=== PATIENT | female | born 1955 | race African-American/Black ===

== ENCOUNTER 2018-08-20 14:13 | Inpatient (IN) | payer OTHER ==
[2018-08-20 15:09] LABS: Protime INR 1.09
[2018-08-20 15:10] LABS: Absolute Lymphocytes (CBC) 1.7 K/uL (0.7-4.9); Absolute Monocytes 0.4 K/uL (0.1-1.3); Absolute Neutrophil 4.2 K/uL (1.8-8.0); Basophils % 0.7 % (0-1.3); Eosinophils % 2.2 % (0-4.4); Lymphocytes % 26.7 % (15.3-44.8); MCH 28.1 pg (27.0-35.0); MCV 84.1 fL (80-100); MPV 8.5 fL (7.6-11.3); Monocytes % 6.5 % (3.3-12.3); RBC Red Blood Cell Count 4.04 M/uL (3.86-4.86)
[2018-08-20 15:22] LABS: ALT/SGPT 18 U/L (12-78); AST/SGOT 15 U/L (15-37); Albumin 3.2 g/dL (3.4-5.0); Alkaline Phosphatase 63 U/L (45-117); BUN Blood Urea Nitrogen 15 mg/dL (7-18); Bicarbonate 29 mmol/L (21-32); Bilirubin Direct 0.1 mg/dL (0-0.2); Bilirubin Total 0.4 mg/dL (0.2-1.0); Glucose Level 83 mg/dL (74-106); Magnesium 1.8 mg/dL (1.8-2.4); NT PRO-BNP 880 pg/mL (<125); Potassium 4.1 mmol/L (3.5-5.1); Protein, Total 7.1 g/dL (6.4-8.2); Sodium Level 144 mmol/L (136-145); Troponin (Emerg Dept Use Only) < 0.02 ng/mL (0.0-0.045)
[2018-08-20 15:36] LABS: Anisocytosis 2+; Blood Morphology Comment NOTED (NOT SEEN); Hypochromasia 1+; Macrocytosis 1+; Platelet Estimate ADEQ; Polychromasia SLIGHT; Target Cells FEW; Urine White Blood Cell Casts OK
--- NOTE | 2018-08-20 16:06 | ER ---
Nurse's Notes [facility] Name: aDhiana Villafana Age: 63 yrs Sex: Female : 1955 Arrival Date: 08/20/2018 Time: 14:14 Bed 8 Private MD: Diagnosis: Altered mental status, unspecified;Weakness;Hypoxemia;Cystitis;Unspecified combined systolic (congestive) and diastolic (congestive) heart failure Presentation: 08/20 14:14 Presenting complaint: EMS states: Reports family called 911 for patient having AMS aj since this AM at 1000. Patient was responsive to pain on scene but slowly became more alert during transfer. Patient is bed bound at home. Awake but remains not verbally responsive at this time. Pupils are pinpoint. Transition of care: patient was not received from another setting of care. Onset of symptoms was August 20, 2018 at 10:00. Risk Assessment: Do you want to hurt yourself or someone else? Patient reports no desire to harm self or others. Initial Sepsis Screen: Does the patient meet any 2 criteria? No. Patient's initial sepsis screen is negative. Does the patient have a suspected source of infection? No. Patient's initial sepsis screen is negative. 14:14 Method Of Arrival: EMS: [facility] 14:14 Acuity: EFE 3 aj 14:28 Care prior to arrival: Glucose check: 84. aj Triage Assessment: 14:24 General: Appears in no apparent distress. well nourished, Behavior is quiet, aj unresponsive. Pain: Denies pain. Neuro: Level of Consciousness is awake, unresponsive, Oriented to none. Respiratory: Airway is patent Respiratory effort is even, unlabored, Respiratory pattern is regular, symmetrical. Derm: Skin is intact, is healthy with good turgor, Skin is pink, warm \T\ dry. normal. Derm: Decubitus located on right sacrum. Musculoskeletal: Contractures to right arm. 14:24 Derm: Decubitus located on heel(s). aj Historical: - Allergies: 14:24 Fentanyl; aj 14:24 Latex, Natural Rubber; aj - Home Meds: 14:24 Coreg 3.125 mg Oral tab 1 tab 2 times per day [Active]; aspirin 81 mg Oral TbEC 1 tab aj once daily [Active]; Cozaar 50 mg Oral tab 1 tab once daily [Active]; Cymbalta 60 mg oral cpDR 1 cap once daily [Active]; docusate sodium 100 mg Oral cap 1 cap once daily [Active]; gabapentin 300 mg oral cap 1 cap daily [Active]; ferrous sulfate 325 mg (65 mg iron) Oral tab [Active]; Keppra 500 mg Oral tab 1 tab 2 times per day [Active]; Norvasc 10 mg Oral tab 1 tab once daily [Active]; [place] 5-325 mg Oral tab as needed [Active]; Plavix 75 mg Oral tab 1 tab once daily [Active]; Remeron 15 mg Oral tab 1 tab once daily [Active]; trazodone 150 mg Oral tab as needed [Active]; Zyloprim 100 mg Oral tab 2 tabs 2 times per day [Active]; - PMHx: 14:24 Aphasia; cachexia; CHF; chronic kidney disease, stage 3; CVA; Depression; Diabetes - aj IDDM; GERD; Gout; Hypertension; Right sided weakness (Post CVA); - PSHx: 14:24 Gtube placement; aj - Immunization history:: Adult Immunizations up to date. - Social history:: Smoking status: Patient/guardian denies using tobacco. - Ebola Screening: : Patient negative for fever greater than or equal to 101.5 degrees Fahrenheit, and additional compatible Ebola Virus Disease symptoms Patient denies exposure to infectious person Patient denies travel to an Ebola-affected area in the 21 days before illness onset No symptoms or risks identified at this time. Screenin:26 Abuse screen: Denies threats or abuse. Denies injuries from another. Nutritional aj screening: No deficits noted. Tuberculosis screening: No symptoms or risk factors identified. Fall Risk None identified. Assessment: 17:26 Reassessment: Patient appears in no apparent distress at this time. No changes from aj previously documented assessment. Patient and/or family updated on plan of care and expected duration. Pain level reassessed. Patient denies pain at this time. 19:15 General: Appears in no apparent distress. not talking. Behavior is calm. Pain: Unable rr5 to use pain scale. aphasic. Neuro: Level of Consciousness is respond to voice. Cardiovascular: Capillary refill < 3 seconds Patient's skin is warm and dry. Respiratory: Airway is patent Respiratory effort is even, unlabored, Respiratory pattern is regular, symmetrical. GI: Abdomen is round. : No signs and/or symptoms were reported regarding the genitourinary system. EENT: No signs and/or symptoms were reported regarding the EENT system. Derm: No signs and/or symptoms reported regarding the dermatologic system. Skin is intact, Skin is dry, Skin is black. Musculoskeletal: Capillary refill < 3 seconds. Vital Signs: 14:27 BP 163 / 91; Pulse 72; Resp 22; Pulse Ox 91% on R/A; aj 14:27 Pulse Ox 100% on 2 lpm NC; aj 17:26 BP 158 / 81; Pulse 71; Resp 20; Pulse Ox 100% on R/A; aj 19:15 BP 165 / 95; Pulse 73; Resp 17; Temp 97.7(A); Pulse Ox 100% on R/A; rr5 20:30 BP 161 / 75; Pulse 75; Resp 17; Pulse Ox 99% on R/A; rr5 [place] Coma Score: 19:15 Eye Response: to voice(3). Verbal Response: confused(4). Motor Response: obeys rr5 commands(6). Total: 13. 20:30 Eye Response: spontaneous(4). Verbal Response: confused(4). Motor Response: obeys rr5 commands(6). Total: 14. ED Course: 14:14 Patient arrived in ED. aj 14:16 Triage completed. aj 14:27 Arm band placed on left wrist. Patient placed in an exam room, on a stretcher, on aj oxygen, on bus driver/monitor, on pulse oximetry. 14:46 Andi Garrison MD is Attending Physician. [facility] 14:47 Initial lab(s) drawn, by mn, sent to lab. Inserted saline lock: 22 gauge in right jb1 wrist, using aseptic technique. Blood collected. 14:56 EKG done, by ED staff, reviewed by Andi Garrison MD. jb1 15:04 XRAY Chest (1 view) In Process Unspecified. EDMS 15:57 Nae Carr MD is Hospitalizing Provider. candy 16:[address] via stretcher. nj 16:22 CT completed. Patient tolerated procedure well. Patient moved back from CT. nj 16:23 CT Head Brain wo Cont In Process Unspecified. EDMS 16:26 Samantha Gonzalez, RN is Primary Nurse. aj 17:26 Patient has correct armband on for positive identification. court recording monitor on. Pulse aj ox on. NIBP on. 17:26 Domingo cath inserted, using sterile technique, 16 Fr., by mn, balloon inflated, to aj gravity drainage, urine specimen collected. other Latex free domingo and latex free gloves used. 18:50 Urine Culture Sent. aj 18:50 Urine Dipstick--Ancillary (enter results) Sent. aj 20:30 No provider procedures requiring assistance completed. Patient admitted, IV remains in bb place. Administered Medications: Discontinued: NS 0.9% 500 ml IV at bolus once Discontinued: NS 0.9% 1000 ml IV at 125 ml/hr continuous 15:55 CANCELLED (Duplicate Order): Rocephin - (cefTRIAXone) 1 grams IVPB once over 30 mins; candy (mix in 50 mL NS) 16:45 Drug: NS 0.9% 500 ml Route: IV; Rate: bolus; Site: right forearm; aj 16:45 Drug: Zosyn 3.375 grams Route: IVPB; Infused Over: 60 mins; Site: right forearm; aj 18:50 Follow up: Response: No adverse reaction; IV Status: Completed infusion; IV Intake: aj 100ml 17:40 Drug: NS 0.9% 1000 ml Route: IV; Rate: 125 ml/hr; Site: right forearm; aj Intake: 18:50 IV: 100ml; Total: 100ml. aj Outcome: 15:58 Decision to Hospitalize by Provider. candy 20:30 Admitted to Tele accompanied by [facility], via stretcher, with chart, Report called to cassi Grullon RN 20:30 Condition: stable 20:30 Instructed on the need for admit. 21:37 Patient left the ED. rr5 Signatures: Dispatcher [employer] Victoriano Castellanos Amanda, RN RN Andi Zhou MD MD cha Ballard, Brenda RN RN Enmanuel Royal Raymond, RN RN rr5 Corrections: (The following items were deleted from the chart) 14:28 14:14 Care prior to arrival: None. aj aj
--- NOTE | 2018-08-20 16:06 | EDPHYS ---
Physician Documentation [facility] Name: Dahiana Villafana Age: 63 yrs Sex: Female : 1955 Arrival Date: 08/20/2018 Time: 14:14 Bed 8 Private MD: ED Physician Andi Garrison HPI: 08/20 15:44 This 63 yrs old Black Female presents to ER via EMS with complaints of Altered Mental candy Status. 15:44 The patient presents with confusion, decreased mental status. Onset: The candy symptoms/episode began/occurred 2 day(s) ago. Possible causes: CVA or TIA, sepsis. Associated signs and symptoms: Pertinent positives: confusion. Current symptoms: In the emergency department the patient's symptoms are unchanged from the initial presentation. Patient's baseline: Neuro: alert but confused. The patient has experienced similar episodes in the past, multiple times. Historical: - Allergies: 14:24 Fentanyl; aj 14:24 Latex, Natural Rubber; aj - Home Meds: 14:24 Coreg 3.125 mg Oral tab 1 tab 2 times per day [Active]; aspirin 81 mg Oral TbEC 1 tab aj once daily [Active]; Cozaar 50 mg Oral tab 1 tab once daily [Active]; Cymbalta 60 mg oral cpDR 1 cap once daily [Active]; docusate sodium 100 mg Oral cap 1 cap once daily [Active]; gabapentin 300 mg oral cap 1 cap daily [Active]; ferrous sulfate 325 mg (65 mg iron) Oral tab [Active]; Keppra 500 mg Oral tab 1 tab 2 times per day [Active]; Norvasc 10 mg Oral tab 1 tab once daily [Active]; [place] 5-325 mg Oral tab as needed [Active]; Plavix 75 mg Oral tab 1 tab once daily [Active]; Remeron 15 mg Oral tab 1 tab once daily [Active]; trazodone 150 mg Oral tab as needed [Active]; Zyloprim 100 mg Oral tab 2 tabs 2 times per day [Active]; - PMHx: 14:24 Aphasia; cachexia; CHF; chronic kidney disease, stage 3; CVA; Depression; Diabetes - aj IDDM; GERD; Gout; Hypertension; Right sided weakness (Post CVA); - PSHx: 14:24 Gtube placement; aj - Immunization history:: Adult Immunizations up to date. - Social history:: Smoking status: Patient/guardian denies using tobacco. - Ebola Screening: : Patient negative for fever greater than or equal to 101.5 degrees Fahrenheit, and additional compatible Ebola Virus Disease symptoms Patient denies exposure to infectious person Patient denies travel to an Ebola-affected area in the 21 days before illness onset No symptoms or risks identified at this time. ROS: 15:47 Constitutional: Negative for fever, chills, and weight loss, Eyes: Negative for injury, candy pain, redness, and discharge, ENT: Negative for injury, pain, and discharge, Neck: Negative for injury, pain, and swelling, Cardiovascular: Negative for chest pain, palpitations, and edema, Abdomen/GI: Negative for abdominal pain, nausea, vomiting, diarrhea, and constipation, Back: Negative for injury and pain, : Negative for injury, bleeding, discharge, and swelling, MS/Extremity: Negative for injury and deformity, Skin: Negative for injury, rash, and discoloration, Psych: Negative for depression, anxiety, suicide ideation, homicidal ideation, and hallucinations, Allergy/Immunology: Negative for hives, rash, and allergies, Endocrine: Negative for neck swelling, polydipsia, polyuria, polyphagia, and marked weight changes, Hematologic/Lymphatic: Negative for swollen nodes, abnormal bleeding, and unusual bruising. 15:47 Respiratory: Positive for cough. 15:47 Neuro: Positive for altered mental status, weakness. Exam: 15:47 Constitutional: This is a well developed, well nourished patient who is awake, alert, candy and in no acute distress. Head/Face: Normocephalic, atraumatic. Eyes: Pupils equal round and reactive to light, extra-ocular motions intact. Lids and lashes normal. Conjunctiva and sclera are non-icteric and not injected. Cornea within normal limits. Periorbital areas with no swelling, redness, or edema. ENT: Nares patent. No nasal discharge, no septal abnormalities noted. Tympanic membranes are normal and external auditory canals are clear. Oropharynx with no redness, swelling, or masses, exudates, or evidence of obstruction, uvula midline. Mucous membranes moist. Neck: Trachea midline, no thyromegaly or masses palpated, and no cervical lymphadenopathy. Supple, full range of motion without nuchal rigidity, or vertebral point tenderness. No Meningismus. Chest/axilla: Normal chest wall appearance and motion. Nontender with no deformity. No lesions are appreciated. Cardiovascular: Regular rate and rhythm with a normal S1 and S2. No gallops, murmurs, or rubs. Normal PMI, no JVD. No pulse deficits. Abdomen/GI: Soft, non-tender, with normal bowel sounds. No distension or tympany. No guarding or rebound. No evidence of tenderness throughout. Back: No spinal tenderness. No costovertebral tenderness. Full range of motion. Female : Normal external genitalia. Skin: Warm, dry with normal turgor. Normal color with no rashes, no lesions, and no evidence of cellulitis. MS/ Extremity: Pulses equal, no cyanosis. Neurovascular intact. Full, normal range of motion. Neuro: Awake and alert, GCS 15, oriented to person, place, time, and situation. Cranial nerves II-XII grossly intact. Motor strength 5/5 in all extremities. Sensory grossly intact. Cerebellar exam normal. Normal gait. Psych: Awake, alert, with orientation to person, place and time. Behavior, mood, and affect are within normal limits. 15:47 Respiratory: the patient does not display signs of respiratory distress, Respirations: normal, Breath sounds: are clear throughout, rhonchi, that are mild, are scattered. 15:47 Skin: cellulitis, is not appreciated, induration, is not appreciated, lesion(s), noted, and can be described as erythematous, pustular, tender, located on the heel of right foot. Vital Signs: 14:27 BP 163 / 91; Pulse 72; Resp 22; Pulse Ox 91% on R/A; aj 14:27 Pulse Ox 100% on 2 lpm NC; aj 17:26 BP 158 / 81; Pulse 71; Resp 20; Pulse Ox 100% on R/A; aj 19:15 BP 165 / 95; Pulse 73; Resp 17; Temp 97.7(A); Pulse Ox 100% on R/A; rr5 20:30 BP 161 / 75; Pulse 75; Resp 17; Pulse Ox 99% on R/A; rr5 [facility] Coma Score: 19:15 Eye Response: to voice(3). Verbal Response: confused(4). Motor Response: obeys rr5 commands(6). Total: 13. 20:30 Eye Response: spontaneous(4). Verbal Response: confused(4). Motor Response: obeys rr5 commands(6). Total: 14. MDM: 14:46 Patient medically screened. [facility] 15:49 Data reviewed: vital signs, nurses notes, lab test result(s), EKG, radiologic studies, [facility] CT scan, plain films. 08/20 14:46 Order name: Basic Metabolic Panel; Complete Time: 15:49 [facility] 08/20 14:46 Order name: CBC with Diff; Complete Time: 15:49 [facility] 08/20 14:46 Order name: LFT's; Complete Time: 15:49 [facility] 08/20 14:46 Order name: Magnesium; Complete Time: 15:49 [facility] 08/20 14:46 Order name: NT PRO-BNP; Complete Time: 15:49 [facility] 08/20 14:46 Order name: PT-INR; Complete Time: 15:49 [facility] 08/20 14:46 Order name: Troponin (emerg Dept Use Only); Complete Time: 15:49 [facility] 08/20 14:46 Order name: Blood Culture Adult (2) [facility] 08/20 14:46 Order name: Lactate; Complete Time: 15:49 [facility] 08/20 14:46 Order name: Procalcitonin; Complete Time: 16:56 [facility] 08/20 15:16 Order name: CBC Smear Scan; Complete Time: 15:49 [facility] 08/20 15:43 Order name: Urine Culture [facility] 08/20 17:25 Order name: Urine Dipstick--Ancillary (enter results) 08/20 17:32 Order name: Urine Dipstick-Ancillary; Complete Time: 18:27 [facility] 08/20 14:46 Order name: XRAY Chest (1 view); Complete Time: 18:27 [facility] 08/20 14:46 Order name: EKG; Complete Time: 14:49 [facility] 08/20 14:46 Order name: Cardiac monitoring; Complete Time: 14:49 [facility] 08/20 14:46 Order name: EKG - Nurse/Tech; Complete Time: 14:49 [facility] 08/20 14:46 Order name: IV Saline Lock; Complete Time: 14:49 [facility] 08/20 14:46 Order name: Labs collected and sent; Complete Time: 14:49 [facility] 08/20 14:46 Order name: O2 Per Protocol; Complete Time: 14:49 [facility] 08/20 14:46 Order name: O2 Sat Monitoring; Complete Time: 14:49 [facility] 08/20 15:43 Order name: Urine Dipstick-Ancillary (obtain specimen); Complete Time: 17:43 [facility] 08/20 15:43 Order name: Burch; Complete Time: 17:43 [facility] 08/20 15:55 Order name: CT Head Brain wo Cont; Complete Time: 16:56 [facility] 08/20 18:23 Order name: Diet Ada 2000 Garrick; Complete Time: 18:28 aj Administered Medications: Discontinued: NS 0.9% 500 ml IV at bolus once Discontinued: NS 0.9% 1000 ml IV at 125 ml/hr continuous 15:55 CANCELLED (Duplicate Order): Rocephin - (cefTRIAXone) 1 grams IVPB once over 30 mins; candy (mix in 50 mL NS) 16:45 Drug: NS 0.9% 500 ml Route: IV; Rate: bolus; Site: right forearm; aj 16:45 Drug: Zosyn 3.375 grams Route: IVPB; Infused Over: 60 mins; Site: right forearm; aj 18:50 Follow up: Response: No adverse reaction; IV Status: Completed infusion; IV Intake: aj 100ml 17:40 Drug: NS 0.9% 1000 ml Route: IV; Rate: 125 ml/hr; Site: right forearm; Disposition: 08/20/18 15:58 Hospitalization ordered by Nae Carr for Observation. Preliminary diagnosis are Altered mental status, unspecified, Weakness, Hypoxemia, Cystitis, Unspecified combined systolic (congestive) and diastolic (congestive) heart failure. - Bed requested for Telemetry/MedSurg (observation). - Status is Observation. rr5 - Condition is Fair. - Problem is new. - Symptoms have improved. UTI on Admission? Yes Signatures: Dispatcher [employer] EDMS Victoriano Garrett [email or web address] Court Bowen RN RN dw Myers, Amanda, RN RN aj Anderson, Corey, MD MD cha Roque, Raymond, RN RN rr5 Corrections: (The following items were deleted from the chart) 15:55 15:55 Rocephin - (cefTRIAXone) 1 grams IVPB once over 30 mins; (mix in 50 mL NS) candy ordered. candy 16:05 15:58 Hospitalization Ordered by Nae Carr MD for Observation. Preliminary diagnosis candy is Altered mental status, unspecified; Weakness. Bed requested for Telemetry/MedSurg (Inpatient). Status is Observation. Condition is Fair. Problem is new. Symptoms have improved. UTI on Admission? Yes. [facility] 16:05 16:05 08/20/2018 15:58 Hospitalization Ordered by Nae Carr MD for Observation. candy Preliminary diagnosis is Altered mental status, unspecified; Weakness; Hypoxemia. Bed requested for Telemetry/MedSurg (Inpatient). Status is Observation. Condition is Fair. Problem is new. Symptoms have improved. UTI on Admission? Yes. [facility] 16:57 16:05 08/20/2018 15:58 Hospitalization Ordered by Nae Carr MD for Inpatient candy Admission. Preliminary diagnosis is Altered mental status, unspecified; Weakness; Hypoxemia. Bed requested for Telemetry/MedSurg (Inpatient). Status is Inpatient Admission. Condition is Fair. Problem is new. Symptoms have improved. UTI on Admission? Yes. [facility] 18:31 16:57 08/20/2018 15:58 Hospitalization Ordered by Nae Carr MD for Observation. candy Preliminary diagnosis is Altered mental status, unspecified; Weakness; Hypoxemia. Bed requested for Telemetry/MedSurg (observation). Status is Observation. Condition is Fair. Problem is new. Symptoms have improved. UTI on Admission? Yes. [facility] 19:38 18:31 08/20/2018 15:58 Hospitalization Ordered by Nae Carr MD for Observation. Preliminary diagnosis is Altered mental status, unspecified; Weakness; Hypoxemia; Cystitis; Unspecified combined systolic (congestive) and diastolic (congestive) heart failure. Bed requested for Telemetry/MedSurg (observation). Status is Observation. Condition is Fair. Problem is new. Symptoms have improved. UTI on Admission? Yes. [facility] 21:37 19:38 08/20/2018 15:58 Hospitalization Ordered by Nae Carr MD for Observation. rr5 Preliminary diagnosis is Altered mental status, unspecified; Weakness; Hypoxemia; Cystitis; Unspecified combined systolic (congestive) and diastolic (congestive) heart failure. Bed requested for Telemetry/MedSurg (observation). Status is Observation. Condition is Fair. Problem is new. Symptoms have improved. UTI on Admission? Yes. dw
--- NOTE | 2018-08-20 16:27 | RAD REPORT ---
EXAM DESCRIPTION: CT - Head Brain Wo Cont - 08/20/2018 4:22 pm CLINICAL HISTORY: Transient alteration of awareness COMPARISON: February 2016. . TECHNIQUE: Axial 5 mm thick images of the head were obtained without IV contrast. All CT scans are performed using dose optimization technique as appropriate and may include automated exposure control or mA/KV adjustment according to patient size. FINDINGS: No intracranial hemorrhage, mass, edema or shift of mid-line structures. No acute infarcti on changes seen. No cortical edema or sulcal effacement. There is a large area of encephalomalacia in the left cerebral hemisphere from old CVA. A smaller area of old CVA is present in the right cerebra l hemisphere. Findings are not substantially different from 2016. Significant underlying atrophy and chronic ischemic change match the old study. Ventricles are in proportion to volume loss. Mastoid air cells and visualized portions of the paranasal sinuses are clear. No acute bony findings. IMPRESSION: No hemorrhage, edema or acute intracranial finding. Significant atrophy, chronic ischemic change and old infarction changes are not substantially differe nt from 2016.
[2018-08-20] MEDS ORDERED: NA CHLORIDE 0.9% 1,000 ML ONE (16:37)
[2018-08-20] MEDS ORDERED: PIPER/TAZO/NS 3.375gm 3.375 GM/100 ML BAG ONE (16:37)
[2018-08-20 17:32] LABS: Urine Blood 1+ (NEG); Urine Glucose NEGATIVE (NEG); Urine Protein NEGATIVE (NEG); Urine Specific Gravity 1.015 (1.005-1.030)
--- NOTE | 2018-08-20 18:00 | RAD REPORT ---
EXAM DESCRIPTION: RAD - Chest Single View - 08/20/2018 3:04 pm CLINICAL HISTORY: Cough and congestion, shortness of breath, stroke-like neurologic symptoms COMPARISON: February 2016, January 2016 TECHNIQUE: AP portable chest image was obtained 1456 hours . FINDINGS: Interstitial and minimal alveolar opacification present. Cardiomegaly is present increased from comparison. Vasculature is engorged. There is fullness of the left hilum that is unchanged from prior imaging. Trachea is midline. Mediastinum is distorted by rotation. No measurable pleural effus ion and no pneumothorax. No acute bony abnormality seen. No acute aortic findings suspected. IMPRESSION: Mild CHF/volume overload pattern is evident. Fullness or masslike density of the left hilum is present but may represent the effects of vascular e ngorgement rather than mass. Follow-up two-view chest exam is recommended when the patient can undergo that procedure.
[2018-08-20] MEDS ORDERED: LEVALBUTEROL 1.25 MG/3 ML NEB ONE (19:26)
[2018-08-20] MEDS: IPRATROPIUM BROM 0.5MG/2.5ML NEB SCH (19:30)
[2018-08-20] MEDS: LEVALBUTEROL 1.25 MG/3 ML NEB NEB SCH (19:30)
[2018-08-20] MEDS ORDERED: ACETAMINOPHEN 500 MG TAB PO PRN (21:15)
[2018-08-20] MEDS ORDERED: ONDANSETRON 4 MG/2 ML VIAL IV PRN (21:15)
[2018-08-20 22:59] VITALS: BMI 25.9
[2018-08-21] MEDS: LEVALBUTEROL 1.25 MG/3 ML NEB NEB SCH ×3 (01:19→14:00)
[2018-08-21] MEDS: IPRATROPIUM BROM 0.5MG/2.5ML NEB SCH ×3 (01:19→14:00)
[2018-08-21] MEDS ORDERED: ACETAMINOPHEN 325 MG TABLET PO PRN ×2 (01:41)
[2018-08-21] MEDS ORDERED: HYDROCODONE/APAP 5/325 MG TAB PO PRN (01:41)
[2018-08-21] MEDS ORDERED: HYDRALAZINE HCL 20 MG/ML VIAL IV ONE (01:58)
[2018-08-21] MEDS ORDERED: ONDANSETRON 4 MG (ODT) TAB PO PRN (02:21)
[2018-08-21 06:00] LABS: Bilirubin Total 0.3 mg/dL (0.2-1.0); Magnesium 1.7 mg/dL (1.8-2.4); Phosphorus 4.2 mg/dL (2.5-4.9); Potassium 4.5 mmol/L (3.5-5.1); Protein, Total 6.7 g/dL (6.4-8.2)
[2018-08-21] MEDS ORDERED: HYDRALAZINE HCL 20 MG/ML VIAL IV PRN (06:00)
[2018-08-21 06:16] LABS: Absolute Lymphocytes (CBC) 1.5 K/uL (0.7-4.9); Absolute Monocytes 0.7 K/uL (0.1-1.3); Absolute Neutrophil 5.9 K/uL (1.8-8.0); Basophils % 0.6 % (0-1.3); Eosinophils % 2.1 % (0-4.4); Lymphocytes % 17.5 % (15.3-44.8); MCH 28.6 pg (27.0-35.0); MCV 84.9 fL (80-100); MPV 8.6 fL (7.6-11.3); Monocytes % 8.8 % (3.3-12.3); RBC Red Blood Cell Count 4.24 M/uL (3.86-4.86)
[2018-08-21] MEDS ORDERED: MAGNESIUM SULFATE 1 gm IVPB 1 GM/100 ML BAG IV ONE (06:19)
--- NOTE | 2018-08-21 07:01 | EKG ---
Test Date: 2018-08-20 Test Time: 14:54:49 Loom Setter Fourdrinier: CHARMAINE MEASUREMENT RESULTS: Intervals: Rate: 68 WV: 162 QRSD: 92 QT: 436 QTc: 463 Sears: P: 43 WV: 162 QRS: 4 T: 49 INTERPRETIVE STATEMENTS: Normal sinus rhythm Nonspecific T wave abnormality Abnormal ECG Compared to ECG 03/18/2016 22:15:32 Sinus bradycardia no longer present T-wave abnormality still present Electronically Signed On 08-21-18 07:00:32 PHYSICAL THERAPY ASSISTANT by Jasvir Galvan
[2018-08-21] MEDS: METFORMIN HCL 500 MG TAB PO SCH ×2 (08:11→16:12)
[2018-08-21] MEDS: CARVEDILOL 3.125 MG TAB PO SCH ×2 (08:11→16:12)
[2018-08-21] MEDS: FERROUS SULFATE 325 MG TAB PO SCH (09:58)
[2018-08-21] MEDS: MULTIVIT W/ MINERAL TAB PO SCH (09:59)
[2018-08-21] MEDS: ASPIRIN 81 MG CHEWABLE TABLET PO SCH (09:59)
[2018-08-21] MEDS: AMLODIPINE 10 MG TAB PO SCH (09:59)
[2018-08-21] MEDS: ASCORBIC ACID 500 MG TABLET PO SCH ×2 (09:59→21:45)
[2018-08-21] MEDS: DOCUSATE NA 100 MG CAP PO SCH ×2 (09:59→21:46)
[2018-08-21] MEDS: ALLOPURINOL 100 MG TAB PO SCH (09:59)
[2018-08-21] MEDS: ZINC SULFATE 220 MG CAP PO SCH (09:59)
[2018-08-21] MEDS: LOSARTAN POTASSIUM 50 MG TABLET PO SCH (09:59)
[2018-08-21] MEDS: AMIODARONE HCL 200 MG TAB PO SCH (10:00)
[2018-08-21] MEDS: levETIRAcetam 500 MG TAB PO SCH ×2 (10:00→21:45)
[2018-08-21] MEDS: CLOPIDOGREL 75 MG TABLET PO SCH (10:01)
[2018-08-21] MEDS ORDERED: D50W 25 GM/50 ML SYRINGE IV PRN (10:41)
[2018-08-21] MEDS ORDERED: GLUCAGON 1 MG/VIAL IM PRN (10:41)
[2018-08-21] MEDS: INSULIN -REGULAR HUMAN 50 UNIT/0.5 ML ML SQ SCH ×3 (11:30→21:00)
--- NOTE | 2018-08-21 11:32 | P.HP ---
Certification for Inpatient Patient admitted to: Observation With expected LOS: <2 Midnights Patient will require the following post-hospital care: None Practitioner: I am a practitioner with admitting privileges, knowledge of patient current condition, hospital course, and medical plan of care. 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 However, she suffered a major stroke which left the left side of her body weak. She went through a lot of depression and she has the done able to recover completely. She still has left-sided weakness and contractures of the left upper extremity. She is living at [facility] and really does not do much. She has has a sacral ulcer and a right-sided heel ulcer. Patient came in with altered mentation and hypoxemia. She does go to episodes of depression were she does not communicate with any body. This is very unlike her personality from when she was a tag press operator. She is admitted to the hospital for observation. Allergies fentanyl Allergy (Verified 08/21/18 00:07) Unknown Latex, Natural Rubber Allergy (Uncoded 02/18/16 05:33) Unknown Home Medications: Acetaminophen [Tylenol -Tablet] 650 mg PO Q4HP PRN 08/21/18 Acetaminophen [Tylenol -Tablet] 650 mg PO Q6HP PRN 08/21/18 Allopurinol [Zyloprim] 200 mg PO DAILY 08/21/18 Amiodarone HCl [Cordarone*] 200 mg PO DAILY 08/21/18 Amlodipine [Norvasc*] 1 tab PO DAILY 08/21/18 Ascorbic Acid 500 mg PO BID 08/21/18 Aspirin 81 mg PO DAILY 08/21/18 Carvedilol [Coreg*] 3.125 mg PO BID 08/21/18 Clopidogrel Bisulfate [Plavix] 75 mg PO DAILY 08/21/18 Docusate Sodium 100 mg PO BID 08/21/18 Donepezil [Aricept] 10 mg PO BEDTIME 08/21/18 Duloxetine HCl [Cymbalta] 30 mg PO BEDTIME 08/21/18 Duloxetine HCl [Cymbalta] 60 mg PO BEDTIME 08/21/18 Ferrous Sulfate [Ferrous Sulfate*] 325 mg PO DAILY 08/21/18 Gabapentin 300 mg PO BEDTIME 08/21/18 Hydrocodone 5/APAP 325 [[place] 5/325*] 1 tab PO Q6HP PRN 08/21/18 Losartan Potassium [Cozaar*] 50 mg PO DAILY 08/21/18 Metformin HCl [Glucophage*] 500 mg PO Q12H 08/21/18 Mirtazapine [Remeron*] 1 tab PO BEDTIME 08/21/18 Multivitamin with Minerals [Multivitamins with Minerals] 1 tab PO DAILY Ondansetron HCl [Zofran] 4 mg PO Q8HP PRN 08/21/18 Terazosin HCl 1 cap PO BEDTIME 08/21/18 Trazodone HCl [Desyrel] 150 mg PO BEDTIME 08/21/18 Zinc Sulfate [Zinc Sulfate*] 1 cap PO DAILY 08/21/18 levETIRAcetam [Keppra*] 500 mg PO BID 08/21/18 - Past Medical/Surgical History Diabetic: Yes -: HTN -: IDDM -: Aphasia -: cachexia -: CHF -: Kidney Disease Stage 3 -: GERD -: Depression -: Stroke -: LEFT KNEE surgery -: CVA Psychosocial/ Personal History: 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 for many years - Family History Father Notes: unknwon Mother Notes: unknown - Social History Alcohol use: No CD- Drugs: No Caffeine use: No Review of Systems 10-point ROS is otherwise unremarkable Physical Examination - Vital Signs Temperature: 98.0 F Blood Pressure: 192/93 Pulse: 67 Respirations: 20 Pulse Ox (%): 96 - Physical Exam General: Alert, In no apparent distress, Oriented x2, Confused HEENT: Atraumatic, PERRLA, Mucous membr. moist/pink, EOMI, Sclerae nonicteric Neck: Supple, 2+ carotid pulse no bruit, No LAD, Without JVD or thyroid abnormality Respiratory: Clear to auscultation bilaterally, Normal air movement Cardiovascular: Regular rate/rhythm, Normal S1 S2, No murmurs Gastrointestinal: Normal bowel sounds, Soft and benign, Non-distended, No tenderness Musculoskeletal: No clubbing, No swelling, No tenderness Integumentary: No rashes Neurological: Sensation intact, Cranial nerves 3-12 intact, Abnormal gait, Abnormal speech, Abnormal strength, Abnormal tone, Abnormal affect Lymphatics: No axilla or inguinal lymphadenopathy - Studies Laboratory Data (last 24 hrs) 08/20/18 14:43: PT 12.9 H, INR 1.09 08/20/18 14:43: WBC 6.6, Hgb 11.4 L, Hct 34.0 L, Plt Count 296 08/20/18 14:43: Sodium 144, Potassium 4.1, BUN 15, Creatinine 1.00, Glucose 83, Magnesium 1.8, Total Bilirubin 0.4, AST 15, ALT 18, Alkaline Phosphatase 63 Microbiology Data (last 24 hrs): 08/20/18 14:30 Blood - Blood Anaerobic Blood Culture - Final 08/20/18 14:43 Blood - Blood Anaerobic Blood Culture - Final Assessment & Plan - Problems (Diagnosis) (1) Hypoxemia Current Visit: Yes Status: Acute (2) Cardiomegaly Current Visit: Yes Status: Acute (3) Acute exacerbation of CHF (congestive heart failure) Current Visit: Yes Status: Acute (4) Malignant hypertension Current Visit: Yes Status: Acute (5) Altered mental status Onset Date: 02/18/16 Current Visit: No Status: Acute (6) CVA (cerebral vascular accident) Onset Date: 12/24/15 Current Visit: No Status: Acute Qualifiers: (7) DM2 (diabetes mellitus, type 2) Onset Date: 12/24/15 Current Visit: No Status: Acute - Plan 1. Echocardiogram 2. Most likely diastolic dysfunction from her history of poorly controlled blood pressure 3. May need to start clonidine 4. Cardiology consultation 5. Gentle diuresing 6. Strict I's and O's 7. Repeat CXR 8. Wound care 9. Continue dressing changes per [facility] orders 10. Monitor renal function closely 11. Patient with questionable dysphagia will get speech therapy eval 12. GI and DVT prophylaxis Discharge Plan: Home Plan to discharge in: Greater than 2 days - Advance Directives Does patient have a Living Will: No Does patient have a Durable POA for Healthcare: No - Code Status/Comfort Care Code Status Assessed: Yes Code Status: Full Code Critical Care: No Time Spent Managing PTS Care (In Minutes): 50
[2018-08-21] MEDS: CEFTRIAXONE/SWI 1gm 1 GM/10 ML SYR IV SCH (13:50)
[2018-08-21] MEDS ORDERED: IPRATROPIUM BROM 0.5MG/2.5ML NEB PRN (14:02)
[2018-08-21] MEDS ORDERED: LEVALBUTEROL 1.25 MG/3 ML NEB NEB PRN (14:02)
[2018-08-21] MEDS: VANCOMYCIN 1.25 GM in NA CHLORIDE 0.9% 250 ML IVPB SCH (15:20)
[2018-08-21] MEDS ORDERED: DULOXETINE 30 MG CAP PO SCH (21:00)
[2018-08-21] MEDS: TERAZOSIN HCL 1 MG CAP PO SCH (21:00)
[2018-08-21] MEDS: GABAPENTIN 300 MG CAP PO SCH (21:45)
[2018-08-21] MEDS: TRAZODONE 150 MG TAB PO SCH (21:45)
[2018-08-21] MEDS: DULOXETINE 30 MG CAP PO SCH (21:45)
[2018-08-21] MEDS: DONEPEZIL HCL 5 MG TAB PO SCH (21:46)
[2018-08-21] MEDS: MIRTAZAPINE 15 MG TAB PO SCH (21:47)
--- NOTE | 2018-08-21 22:13 | P.PN ---
Subjective Date of Service: 08/22/18 Chief Complaint: Altered mental status/hypoxemia Physical Examination - Vital Signs Temperature: 97.0 F Blood Pressure: 128/74 Pulse: 80 Respirations: 16 Pulse Ox (%): 97 - Studies Microbiology Data (last 24 hrs): 08/20/18 14:30 Blood - Blood Anaerobic Blood Culture - Final 08/20/18 14:43 Blood - Blood Anaerobic Blood Culture - Final Assessment And Plan - Plan Hypoxemia Improved, continue oxygen as needed Cardiomegaly Acute exacerbation of CHF (congestive heart failure) Continue IV diuresis Cardiology consultation Echo pending, most likely diastolic dysfunction were history of poorly- controlled blood pressure Malignant hypertension Improved with losartan, amlodipine and Coreg. Will continue current medications at this time. Hydralazine p.r.n. ordered for SBP greater than 160 Altered mental status Unsure of baseline, the patient at this time just opens eyes and stares The attempt to respond. Which she can nod her head yes or no appropriately to questions, when she wants to. May consider imaging if no improvement. Will call intermediate to get report on patient's baseline. CVA (cerebral vascular accident) DM2 (diabetes mellitus, type 2) Accu-Cheks, sliding scale insulin Dysphasia. Speech therapy eval, recommendations appreciated. DVT prophylaxis: Lovenox GI prophylaxis: Protonix Diet: Mechanically soft food and regular liquids. Disposition:
[2018-08-22 05:49] LABS: Absolute Lymphocytes (CBC) 1.7 K/uL (0.7-4.9); Absolute Monocytes 0.5 K/uL (0.1-1.3); Absolute Neutrophil 2.8 K/uL (1.8-8.0); Basophils % 1.3 % (0-1.3); Eosinophils % 3.3 % (0-4.4); Hematocrit 30.2 % (36.0-45.0); Lymphocytes % 32.8 % (15.3-44.8); MCH 28.5 pg (27.0-35.0); MCV 84.2 fL (80-100); MPV 8.5 fL (7.6-11.3); Monocytes % 8.8 % (3.3-12.3); RBC Red Blood Cell Count 3.59 M/uL (3.86-4.86)
[2018-08-22 06:02] LABS: Albumin 2.6 g/dL (3.4-5.0); Bilirubin Total 0.3 mg/dL (0.2-1.0); Magnesium 1.9 mg/dL (1.8-2.4); Potassium 4.2 mmol/L (3.5-5.1)
[2018-08-22] MEDS: INSULIN -REGULAR HUMAN 50 UNIT/0.5 ML ML SQ SCH ×4 (07:30→21:00)
[2018-08-22] MEDS: CARVEDILOL 3.125 MG TAB PO SCH ×2 (08:35→18:13)
[2018-08-22] MEDS: METFORMIN HCL 500 MG TAB PO SCH ×2 (08:36→18:13)
[2018-08-22] MEDS: DOCUSATE NA 100 MG CAP PO SCH ×2 (09:43→20:28)
[2018-08-22] MEDS: AMIODARONE HCL 200 MG TAB PO SCH (09:43)
[2018-08-22] MEDS: FERROUS SULFATE 325 MG TAB PO SCH (09:43)
[2018-08-22] MEDS: CLOPIDOGREL 75 MG TABLET PO SCH (09:43)
[2018-08-22] MEDS: ASPIRIN 81 MG CHEWABLE TABLET PO SCH (09:43)
[2018-08-22] MEDS: ASCORBIC ACID 500 MG TABLET PO SCH ×2 (09:43→20:28)
[2018-08-22] MEDS: MULTIVIT W/ MINERAL TAB PO SCH (09:43)
[2018-08-22] MEDS: LOSARTAN POTASSIUM 50 MG TABLET PO SCH (09:44)
[2018-08-22] MEDS: ALLOPURINOL 100 MG TAB PO SCH (09:44)
[2018-08-22] MEDS: levETIRAcetam 500 MG TAB PO SCH ×2 (09:44→20:29)
[2018-08-22] MEDS: AMLODIPINE 10 MG TAB PO SCH (09:44)
[2018-08-22] MEDS: ZINC SULFATE 220 MG CAP PO SCH (09:44)
[2018-08-22] MEDS: CEFTRIAXONE/SWI 1gm 1 GM/10 ML SYR IV SCH (09:45)
[2018-08-22] MEDS: VANCOMYCIN 1.25 GM in NA CHLORIDE 0.9% 250 ML IVPB SCH (09:45)
--- NOTE | 2018-08-22 17:16 | P.PN ---
Subjective Date of Service: 08/22/18 Chief Complaint: Altered mental status/hypoxemia Subjective: No new changes Patient seen and examined at bedside. No family at bedside. Case discussed with nursing staff. Review of Systems As noted Physical Examination - Vital Signs Temperature: 97.0 F Blood Pressure: 128/74 Pulse: 80 Respirations: 16 Pulse Ox (%): 97 - Physical Exam General: In no apparent distress, Unresponsive, Other (Though does respond by nodding her head appropriately yes or no when she wants) HEENT: Atraumatic, PERRLA, EOMI Neck: Supple, JVD not distended Respiratory: Clear to auscultation bilaterally, Normal air movement Cardiovascular: Regular rate/rhythm, Normal S1 S2 Gastrointestinal: Normal bowel sounds, No tenderness Musculoskeletal: No tenderness Integumentary: No rashes Neurological: Normal speech, Normal tone, Normal affect Lymphatics: No axilla or inguinal lymphadenopathy - Studies Microbiology Data (last 24 hrs): 08/20/18 14:30 Blood - Blood Aerobic Blood Culture - Final 08/20/18 14:30 Blood - Blood Gram Stain - Final 08/20/18 14:30 Blood - Blood Anaerobic Blood Culture - Final 08/20/18 14:43 Blood - Blood Aerobic Blood Culture - Final 08/20/18 14:43 Blood - Blood Gram Stain - Final 08/20/18 14:43 Blood - Blood Anaerobic Blood Culture - Final Assessment And Plan - Plan Hypoxemia Improved, continue oxygen as needed Cardiomegaly Acute exacerbation of CHF (congestive heart failure) Continue IV diuresis Cardiology consultation Echo pending, most likely diastolic dysfunction were history of poorly- controlled blood pressure Malignant hypertension Improved with losartan, amlodipine and Coreg. Will continue current medications at this time. Hydralazine p.r.n. ordered for SBP greater than 160 Urinary tract infection with Klebsiella Continue IV Rocephin Blood cultures pending, negative growth till date. If continue to be negative, will discontinue vancomycin Altered mental status Unsure of baseline, the patient at this time just opens eyes and stares The attempt to respond. Which she can nod her head yes or no appropriately to questions, when she wants to. May consider imaging if no improvement. Will call [facility] to get report on patient's baseline. CVA (cerebral vascular accident) DM2 (diabetes mellitus, type 2) Accu-Cheks, sliding scale insulin Dysphasia. Speech therapy eval, recommendations appreciated. DVT prophylaxis: Lovenox GI prophylaxis: Protonix Diet: Mechanically soft food and regular liquids. Disposition: Pending symptomatic improvement, return getting back to baseline. Cardiac testing also pending. [facility]charge Plan: [facility] Plan to discharge in: 24 Hours
[2018-08-22] MEDS: DULOXETINE 30 MG CAP PO SCH (20:28)
[2018-08-22] MEDS: MIRTAZAPINE 15 MG TAB PO SCH (20:29)
[2018-08-22] MEDS: DONEPEZIL HCL 5 MG TAB PO SCH (20:29)
[2018-08-22] MEDS: TRAZODONE 150 MG TAB PO SCH (20:30)
[2018-08-22] MEDS: TERAZOSIN HCL 1 MG CAP PO SCH (20:30)
[2018-08-22] MEDS: GABAPENTIN 300 MG CAP PO SCH (20:30)
[2018-08-23] MEDS: VANCOMYCIN 1.25 GM in NA CHLORIDE 0.9% 250 ML IVPB SCH (03:34)
[2018-08-23 05:55] LABS: Absolute Lymphocytes (CBC) 1.6 K/uL (0.7-4.9); Absolute Monocytes 0.6 K/uL (0.1-1.3); Absolute Neutrophil 3.4 K/uL (1.8-8.0); Basophils % 0.7 % (0-1.3); Eosinophils % 3.9 % (0-4.4); Hematocrit 32.1 % (36.0-45.0); Lymphocytes % 27.6 % (15.3-44.8); MCV 85.6 fL (80-100); MPV 8.6 fL (7.6-11.3); Monocytes % 10.2 % (3.3-12.3); RBC Red Blood Cell Count 3.75 M/uL (3.86-4.86)
[2018-08-23 06:19] LABS: Albumin 2.6 g/dL (3.4-5.0); Bilirubin Total 0.2 mg/dL (0.2-1.0); Potassium 4.2 mmol/L (3.5-5.1); Protein, Total 6.1 g/dL (6.4-8.2)
[2018-08-23] MEDS: INSULIN -REGULAR HUMAN 50 UNIT/0.5 ML ML SQ SCH ×2 (07:30→11:30)
[2018-08-23] MEDS: CARVEDILOL 3.125 MG TAB PO SCH (08:00)
[2018-08-23] MEDS: CLOPIDOGREL 75 MG TABLET PO SCH (10:07)
[2018-08-23] MEDS: ALLOPURINOL 100 MG TAB PO SCH (10:08)
[2018-08-23] MEDS: ZINC SULFATE 220 MG CAP PO SCH (10:08)
[2018-08-23] MEDS: ASPIRIN 81 MG CHEWABLE TABLET PO SCH (10:08)
[2018-08-23] MEDS: AMIODARONE HCL 200 MG TAB PO SCH (10:08)
[2018-08-23] MEDS: DOCUSATE NA 100 MG CAP PO SCH (10:09)
[2018-08-23] MEDS: LOSARTAN POTASSIUM 50 MG TABLET PO SCH (10:09)
[2018-08-23] MEDS: AMLODIPINE 10 MG TAB PO SCH (10:09)
[2018-08-23] MEDS: MULTIVIT W/ MINERAL TAB PO SCH (10:10)
[2018-08-23] MEDS: FERROUS SULFATE 325 MG TAB PO SCH (10:10)
[2018-08-23] MEDS: METFORMIN HCL 500 MG TAB PO SCH (10:10)
[2018-08-23] MEDS: levETIRAcetam 500 MG TAB PO SCH (10:10)
[2018-08-23] MEDS: ASCORBIC ACID 500 MG TABLET PO SCH (10:11)
[2018-08-23] MEDS: CEFTRIAXONE/SWI 1gm 1 GM/10 ML SYR IV SCH (10:11)
[2018-08-23 15:09] VITALS: O2SAT 97
[2018-08-23 18:21] VITALS: BP 175/75; TEMP 97.8
--- NOTE | 2018-08-23 18:47 | P.DS ---
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 However, she suffered a major stroke which left the left side of her body weak. She went through a lot of depression and she has the done able to recover completely. She still has left-sided weakness and contractures of the left upper extremity. She is living at [facility] and really does not do much. She has has a sacral ulcer and a right-sided heel ulcer. Patient came in with altered mentation and hypoxemia. She does go to episodes of depression were she does not communicate with any body. 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 She is admitted to the hospital for observation. Hospital Course: Hypoxemia Resolved with supplemental oxygen. Off of oxygen at the time of discharge. Cardiomegaly Acute exacerbation of CHF (congestive heart failure): Symptoms improved after treatment. In echo was not done during this hospitalization. She was diuresed with IV Lasix, which improved her symptoms. Malignant hypertension Improved with losartan, amlodipine and Coreg. Remains stable on home medications, no medication changes made at the time of discharge Urinary tract infection with Klebsiella She received IV Rocephin and IV vancomycin in the hospital. Per cultures, sensitive to Augmentin. Discharged on oral Augmentin times 14 days. Altered mental status It seems that patient chooses to talk to home wherever she would like. Throughout the hospitalization, she would open her eyes but refused to talk to me. Noted to have talked to other nursing staff throughout the stay. Discussed with him the Deshawn, this seems to be her baseline. CVA (cerebral vascular accident) DM2 (diabetes mellitus, type 2) Accu-Cheks, sliding scale insulin Patient was discharged home with family, as they did not want patient to go back to her home. She was hemodynamically stable, back to her baseline mentation real and was not in any acute distress. Vital Signs/Physical Exam: Temp Pulse Resp BP Pulse Ox 97.8 F 71 18 175/75 H 96 08/23/18 16:00 08/23/18 16:00 08/23/18 16:00 08/23/18 16:00 08/23/18 16:00 General: Alert, In no apparent distress HEENT: Atraumatic, PERRLA, EOMI Neck: Supple, JVD not distended Respiratory: Clear to auscultation bilaterally, Normal air movement Cardiovascular: Regular rate/rhythm, Normal S1 S2 Gastrointestinal: Normal bowel sounds, No tenderness Musculoskeletal: No tenderness Integumentary: No rashes Neurological: Abnormal speech, Abnormal affect Laboratory Data at Discharge: WBC 6.0 K/uL (4.3-10.9) 08/23/18 05:30 Hgb 10.5 g/dL (12.0-15.0) L 08/23/18 05:30 Hct 32.1 % (36.0-45.0) L 08/23/18 05:30 Plt Count 261 K/uL (152-406) 08/23/18 05:30 PT 12.9 SECONDS (9.5-12.5) H 08/20/18 14:43 INR 1.09 08/20/18 14:43 Sodium 142 mmol/L (136-145) 08/23/18 05:30 Potassium 4.2 mmol/L (3.5-5.1) 08/23/18 05:30 BUN 18 mg/dL (7-18) 08/23/18 05:30 Creatinine 0.90 mg/dL (0.55-1.3) 08/23/18 05:30 Glucose 82 mg/dL (74-106) 08/23/18 05:30 Phosphorus 4.2 mg/dL (2.5-4.9) 08/21/18 05:13 Magnesium 1.9 mg/dL (1.8-2.4) 08/22/18 05:25 Total Bilirubin 0.2 mg/dL (0.2-1.0) 08/23/18 05:30 AST 13 U/L (15-37) L 08/23/18 05:30 ALT 17 U/L (12-78) 08/23/18 05:30 Alkaline Phosphatase 60 U/L (45-117) 08/23/18 05:30 Home Medications: Acetaminophen [Tylenol -Tablet] 650 mg PO Q4HP PRN 08/21/18 Acetaminophen [Tylenol -Tablet] 650 mg PO Q6HP PRN 08/21/18 Allopurinol [Zyloprim] 200 mg PO DAILY 08/21/18 Amiodarone HCl [Cordarone*] 200 mg PO DAILY 08/21/18 Amlodipine [Norvasc*] 1 tab PO DAILY 08/21/18 Ascorbic Acid 500 mg PO BID 08/21/18 Aspirin 81 mg PO DAILY 08/21/18 Carvedilol [Coreg*] 3.125 mg PO BID 08/21/18 Clopidogrel Bisulfate [Plavix] 75 mg PO DAILY 08/21/18 Docusate Sodium 100 mg PO BID 08/21/18 Donepezil [Aricept] 10 mg PO BEDTIME 08/21/18 Duloxetine HCl [Cymbalta] 30 mg PO BEDTIME 08/21/18 Duloxetine HCl [Cymbalta] 60 mg PO BEDTIME 08/21/18 Ferrous Sulfate [Ferrous Sulfate*] 325 mg PO DAILY 08/21/18 Gabapentin 300 mg PO BEDTIME 08/21/18 Hydrocodone 5/APAP 325 [[place] 5/325*] 1 tab PO Q6HP PRN 08/21/18 Losartan Potassium [Cozaar*] 50 mg PO DAILY 08/21/18 Metformin HCl [Glucophage*] 500 mg PO Q12H 08/21/18 Mirtazapine [Remeron*] 1 tab PO BEDTIME 08/21/18 Multivitamin with Minerals [Multivitamins with Minerals] 1 tab PO DAILY Ondansetron HCl [Zofran] 4 mg PO Q8HP PRN 08/21/18 Terazosin HCl 1 cap PO BEDTIME 08/21/18 Trazodone HCl [Desyrel] 150 mg PO BEDTIME 08/21/18 Zinc Sulfate [Zinc Sulfate*] 1 cap PO DAILY 08/21/18 levETIRAcetam [Keppra*] 500 mg PO BID 08/21/18 Amox/Clavulanate [Augmentin 500-125 mg Tab] 500 mg PO Q12H #24 tab 08/23/18 New Medications: Amox/Clavulanate [Augmentin 500-125 mg Tab] 500 mg PO Q12H #24 tab Patient Discharge Instructions: Please follow up with the primary care physician in 1 week Diet: Regular Activity: Ad paulie Physician Review: Patient Assessed, Agree with Above Assessment and Plan Time spent managing pt's care (in minutes): 45
== END 2018-08-23 18:10 | disposition home or self-care (01) | DRG 291 ==
LOC: ER 14:13 → ERHOLD 16:02 → 2ND 20:36 → OBSVTOIN 08-22 19:28
PROVIDERS: ADMIT Family Medicine; ATTEND Hospitalist
DX: I13.0 Hypertensive heart and chronic kidney disease with heart failure and stage 1 through stage 4 chronic kidney disease, or unspecified chronic kidney disease (principal); I50.33 Acute on chronic diastolic (congestive) heart failure; I69.354 Hemiplegia and hemiparesis following cerebral infarction affecting left non-dominant side; N39.0 Urinary tract infection, site not specified; N18.3 Chronic kidney disease, stage 3 (moderate); E11.22 Type 2 diabetes mellitus with diabetic chronic kidney disease; K21.9 Gastro-esophageal reflux disease without esophagitis; B96.1 Klebsiella pneumoniae [K. pneumoniae] as the cause of diseases classified elsewhere
CPT/HCPCS: 36415; 51702; 70450; 71045; 80048; 80053; 80076; 81003; 82962; 83605; 83735; 83880; 84100; 84145; 84484; 85025; 85610; 87040; 87070; 87077; 87086; 87088; 87186; 87205; 93005; 94640; 94760; 96365; 96366; 99285; G0378; J0360; J0696; J2543; J3475; J7030